=== PATIENT | female | born 1955 | race Caucasian/White ===

== ENCOUNTER 2019-09-18 08:43 | Emergency (ER) | payer MEDICARE, SELFPAY ==
[2019-09-18] VITALS (7 sets, daily range): BP systolic 140–168; BP diastolic 69–138; PULSE 82–128; RESP 16–18; TEMP 36.9–37.3; O2SAT 93–97; BMI 26.2
--- NOTE | 2019-09-18 08:57 | W.ED.ANIMALB ---
HPI - Animal Bite General: Chief Complaint: Animal Bite Stated Complaint: L HAND INJURY Time Seen by Provider: 09/18/19 08:46 Source: patient Mode of arrival: ambulatory Limitations: no limitations History of Present Illness: HPI narrative: Patient is a 63-year-old female who presents to ED today for evaluation of a dog bite to her left hand that occurred last night. Patient states she is fostering a stray pit bull. States the dog is been acting normally but last night it bit her. Patient does not know the dog's immunization status. She is refusing rabies shots stating she will quarantine and watch the dog. She states her tetanus is up-to-date. complaint: animal bite Onset (ago): hour(s) Animal: dog Description of animal: immunizations unknown and appeared well Mechanism: bite Location - Extremities: Left: hand Context: playing with animal Associated symptoms: Deny chills, fever(s) or headache(s) Related Data: Patient tetanus UTD: Yes Review of Systems Const: Denies: fever(s), chills or body aches Card: Denies: chest pain Resp: Denies: dyspnea GI: Denies: abdominal pain, nausea or vomiting Musc: Reports: extremity pain (L hand) and extremity swelling (L hand) Skin/Breast: Denies: rash Neuro: Denies: headache(s), numbness in extremities, weakness in extremities or sensory changes PFSH ED PFSH: Social History Smoking and tobacco status: former smoker Physical Exam Const: COMMON NORMALS: no acute distress, average body habitus, patient oriented x3, no limitations, healthy appearing, alert and well nourished Extremity: OTHER: swelling and several puncture escalera noted to dorsum of L hand; one 1.5 cm laceration overlying 2nd metacarpal head on dorsal side; pt maintains sensation; index finger MCP joint with limited ROM secondary to pain; remainder of ROM of digits is intact Neuro: COMMON NORMALS: patient oriented x3, moves all extremities, no focal motor deficits, no sensory deficits noted and gait normal SENSORIUM/ORIENTATION: Yes alert Skin: OTHER: see extremity assessment Procedures Laceration Laceration 1: Site: hand Side (If applicable): left Size (cm): 1.5 Description: linear Depth: simple, single layer Local Anesthetic: lidocaine 1% Amount of anesthesia used (mL): 1.0 Pre-repair: irrigated extensively Skin layer closed with: nylon Size (cm): 4-0 Number of sutures: 3 Technique: simple, interrupted (loosely closed) Course Consultations: Consultation #1: Dr. Jo hand surgery; recommends hibiclens at home, splint, stated do NOT start abx at this time, and he will see tomorrow at 3:30pm Vital Signs: Vital signs: Vital Signs Temperature 98.4 F 09/18/19 09:53 Pulse Rate 86 09/18/19 09:55 Respiratory Rate 18 09/18/19 09:55 Blood Pressure 152/72 09/18/19 09:53 Pulse Oximetry 95 09/18/19 09:55 MDM - Animal Bite Imaging Data^: L hand XR: Radiologist's impression: [address] [address] XRay Report Signed Patient: Monisha Cruz Unit #: [id number] : 1955 Age/Sex: 63 / F ADM Date: 09/18/19 Loc: ER Room/Bed: Attending Dr: Ordering Provider/Ordering MD: Swapna Baugh Date of Service: 09/18/19 Procedure(s): XR hand LT min 3V* [id number] Accession Number(s): [id number] Report Number: [id number] PROCEDURE INFORMATION: Exam: XR Left Hand Exam date and time: 09/18/2019 9:24 AM Age: 63 years old Clinical indication: Injury or trauma; Injury history: Bit by dog; Initial encounter; Bite; Hand; Left; Injury date: 09/16 6:30 pm; Additional info: Dog bite TECHNIQUE: Imaging protocol: XR Left hand. Views: 3 or more views. COMPARISON: No relevant prior studies available. FINDINGS: Bones/joints: Mildly comminuted fracture mid aspect 3rd metacarpal with volar angulation at the fracture site. Approximately 1/4 shaft with displacement. Comminuted fracture distal aspect 2nd metacarpal likely extending to the articular surface with volar angulation. Severe degenerative changes first carpometacarpal joint. Ulnar minus variance. 4 mm. Severe degenerative changes within the distal interphalangeal joint 1st ray Soft tissues: Normal. XR/XR hand LT min 3V* [id number] IMPRESSION: 1. Mildly comminuted fracture mid aspect 3rd metacarpal with volar angulation at the fracture site. Approximately 1/4 shaft with displacement. 2. Comminuted fracture distal aspect 2nd metacarpal likely extending to the articular surface with volar angulation. Near full shaft with displacement. 3. Severe degenerative changes first carpometacarpal joint. Dictated By: Philip Warner MD Signed By: Philip Warner MD Signed Date/Time: 09/18/19950 DD/ 9 Discharge Plan Discharge Patient Disposition: Home, Self-Care Clinical Impression: Dog bite of left hand Qualifiers: Encounter type: initial encounter Qualified Code(s): S61.452A - Open bite of left hand, initial encounter Open displaced fracture of neck of left second metacarpal bone Qualifiers: Encounter type: initial encounter Qualified Code(s): S62.331B - Displaced fracture of neck of second metacarpal bone, left hand, initial encounter for open fracture Closed fracture of shaft of third metacarpal bone of left hand Qualifiers: Encounter type: initial encounter Fracture alignment: nondisplaced Qualified Code(s): S62.353A - Nondisplaced fracture of shaft of third metacarpal bone, left hand, initial encounter for closed fracture Condition: Stable Prescriptions: New hydrocodone-acetaminophen 5-325 mg tablet 1 tab PO Q4H PRN (Reason: pain) Qty: 20 RF: 0 Zofran 4 mg tablet 4 mg PO Q6H PRN (Reason: nausea and vomiting) Qty: 14 RF: 0 Discharge Orders: Discharge Order (Routine); Ordered 09/18/19 Ordered By: Swapna Baugh Referrals: ANSHU CLINTON, DO [Primary Care Provider] - Activity Restrictions/Additional Instructions: Dr. Kearney, hand surgeon at [facility], will see you tomorrow at 3:30 PM. Address for his office is [address] [place] [address]. Phone number is [phone]. You have been provided Hibiclens to help keep your wounds clean. Bring hand XR disc with you to the appointment. Coding Level of Care Code ED Records And Tape Recordings Engineer for Chg Fwd Exam Expanded Problem Focused
[2019-09-18] MEDS: morphine 4 mg/mL SDV 1 mL IM (09:01)
[2019-09-18] MEDS: lidocaine 2% INJ 20 mL INJECTION (09:02)
[2019-09-18] MEDS: ondansetron 2 mg/ML SDV 2 mL 4 MG IVP (09:48)
[2019-09-18] MEDS: ceFAZolin 1,000 MG in sodium chloride 0.9% (plus) 50 ML 100 MG IV (09:49)
[2019-09-18] MEDS: chlorhexidine gluconate 4% Btl 118 mL 1 APPLIC TOPICAL (11:17)
== END 2019-09-18 11:23 | disposition home or self-care (01) ==
PROVIDERS: Emergency Provider Physician Assistant; PCP Internal Medicine
DX: S61.452A Open bite of left hand, initial encounter (principal); W54.0XXA Bitten by dog, initial encounter; S62.331B Displaced fracture of neck of second metacarpal bone, left hand, initial encounter for open fracture; S62.353A Nondisplaced fracture of shaft of third metacarpal bone, left hand, initial encounter for closed fracture; Z87.891 Personal history of nicotine dependence
CPT/HCPCS: 12001; 12345; 73130; 96365; 96372; 96375; 99283; J0690; J2001; J2270; J2405